=== PATIENT | male | born 2000 | race Caucasian/White ===

== ENCOUNTER → 2024-06-15 15:23 | Outpatient (CLI) | payer OTHER, SELFPAY ==
--- NOTE | 2024-06-15 15:26 | DI.RAD.S_ITS ---
PROCEDURE: XR FOOT RT MIN 3V INDICATIONS: Right foot pain TECHNIQUE: 3 views of the foot were acquired. COMPARISON: None. FINDINGS: Bones: No fractures or dislocations. No suspicious bony lesions. Soft tissues: No tibiotalar joint effusion. Achilles tendon appears normal. IMPRESSION: No right foot fracture or dislocation. No suspicious bony lesions. No gross soft tissue abnormalities. Dictated by: Omid Munoz M.D. on 06/16/2024 at 9:48 Approved by: Omid Munoz M.D. on 06/16/2024 at 9:51
== END ==
PROVIDERS: Referring Provider Nurse Practitioner Family; Visit Provider Nurse Practitioner Family
DX: M79.671 Pain in right foot (principal)
CPT/HCPCS: 73630